=== PATIENT | female | born 1990 | race Caucasian/White ===

== ENCOUNTER 2017-02-12 09:19 | Emergency (ER) | payer SELFPAY ==
--- OUTSIDE RECORDS SUMMARY | 2017-02-12 09:54 | XMS REPORT | Continuity of Care Document ---
:1990 Author Organization [employer] [place] [address] Care Team Providers Name Role Phone Unavailable Primary Care Provider Unavailable Source Comments This disclosure is being made pursuant to the [employer] program and maynot contain all information available regarding this patient.[employer] Active Allergies and Adverse Reactions Not on File Current Medications Be aware that medications may not be up to date as of this document. Alwaysverify current medications with the patient. Not on file Active Problems Not on file Most Recent Encounters Date Type Specialty Providers Description 02/03/2017 Orders Only Provider, Not In System 01/29/2017 Orders Only Provider, Not In System 01/28/2017 Refill Family Medicine Rocio Tang NP 01/28/2017 Orders Only Provider, Not In System Social History Tobacco Use Types Packs/Day Years Used Date Never Assessed Plan of Care Health Maintenance Due Date Last Done Comments HPV Vaccine (9-26YO) (1 of 3 - Female 3 Dose Series) 2003 Chlamydia Screening 2008 Tetanus/Pertussis (1 - Tdap) 2011 Pap Smear 2013 Influenza Immunization (#1) 2016 Results from Last 3 Months Laboratory Miscellaneous (01/21/2017)Only the most recent of2 resultswithin the time period is included.Comprehensive metabolic panel (01/21/2017)CBC auto differential (01/21/2017) Component Value Range WBC Count 7.0 10^3/mL RBC 5.13 10^6/L Hemoglobin 15.0 g/dL Hematocrit 44.0 % Platelets 239 K/L Specimen BLOOD Narrative See scanned results 01-21-17 Lipid panel (01/21/2017) Component Value Range Cholesterol 200 mg/dL Triglycerides 154 mg/dL HDL 37 mg/dL LDL 132 mg/dL Narrative See scanned Results 01-21-17 Urine Drug Screen (01/21/2017) Specimen Urine
[2017-02-12] MEDS ORDERED: KETOROLAC TROMETHAMINE 30 MG/ML VIAL IM ONE (10:00)
[2017-02-12] MEDS ORDERED: KETOROLAC TROMETHAMINE 30 MG/ML VIAL ONE (10:05)
[2017-02-12 10:50] LABS: Hematocrit 43.2 % (37.0-47.0); Hemoglobin 14.7 gm/dL (12.5-16.0); Mean Cell Volume 86.2 fl (78-100); Mean Corpuscular Hemoglobin 29.3 pg (27-31); Neutrophil # 5.5 K/mm3 (1.3-6.0); Neutrophil % 65.8 % (42-75.0); Platelet Count 250 K/mm3 (150-450); Red Blood Count 5.01 M/mm3 (4.2-5.4); Red Cell Distribution Width 12.9 % (11.5-14.0); White Blood Count 8.4 K/mm3 (4.0-10.5)
[2017-02-12 11:06] LABS: ALT 42 U/L (19-67); AST 16 U/L (0-48); Albumin * 3.6 gm/dl (3.4-5.0); Alkaline Phosphatase * 66 U/L (50-170); Anion Gap 13.4 mmol/L (6.8-13.8); Bilirubin, Total 0.3 mg/dL (0.0-1.1); Blood Urea Nitrogen 9 mg/dL (3-23); Ca. Corrected For Albumin 9.1 mg/dL (8.4-10.2); Calcium * 9.1 mg/dL (7.9-10.9); Carbon Dioxide 24.8 mmol/L (24-32.6); Chloride 102 mmol/L (97-106); Glucose * 109 mg/dL (70-110); Lipase 132 U/L (73-393); Potassium 4.2 mmol/L (3.4-4.6); Sodium 136 mmol/L (132-142); Total Protein 7.6 gm/dL (6.2-8.2); Troponin I Less than 0.017 ng/ml (0.00-0.10)
--- NOTE | 2017-02-12 12:11 | ERNOTE ---
Medical Problem HPI - Narrative Date of Service: 02/12/17 - General Chief Complaint: General Assessment Time Seen by Provider: 02/12/17 09:44 Source: patient Exam Limitations: no limitations - Immun/Allergies/Home Medications Immunizations: IMMUNIZATION HX Immunizations Up to Date Yes History of Influenza Vaccine No Allergies/Adverse Reactions: Allergies amoxicillin Allergy (Verified 02/12/17 09:42) Swelling of Tongue Home Medications: HOME MEDICATIONS NK [No Home Medication] 02/12/17 [Last Taken Unknown] - History of Present History Narrative: Patient presents to the ED for rib pain. She relates 4 days of anterior rib pain low chest. She denies injury. pain has been constant for 4 days. Worse with moving, palpation and breathing. She was seen at outside hospital and she relates a full workup and was treated with antiinflammatories but did not fill the script. I was unable to get w/u/old records from that hospital. She has never had this before. No fever or cough. No injury. Right now m,oderate. Denies abdominal pain. No SOB at this time. Timing: constant Severity: moderate Modifying Factors - (Improves): Present: rest Modifying Factors - (Worsens): Present: movement, other - palpation Review of Systems - Review of Systems Constitutional: Absent: fever ENT: Present: no symptoms reported Respiratory: Present: See HPI Cardiology: Present: See HPI Gastrointestinal/Abdominal: Present: See HPI Neurological: Absent: weakness - Patient's Past Medical History Patient History - Medical: No pertinent hx Patient History - Cardiac/Respiratory: No pertinent hx Patient History - Cancer: No Hx of Cancer Patient History - Surgical Procedures: No surgical history Patient History - Other: None LMP (females 10-50): this week - Social History Psych History: No pertinent hx Do you dip or chew tobacco: Yes Drug Use: none - Immunizations Immunizations Up to Date: Yes History of Influenza Vaccine: No Physical Exam - Physical Exam General Appearance: Present: alert, no apparent distress, other - non-toxic, no distress, speaking in full sentences. Eye Exam: Normal inspection: bilateral Ears, Nose, Throat: Present: normal ENT inspection Neck: Present: normal inspection Respiratory: Present: no respiratory distress, normal breath sounds, no accessory muscle use, lungs clear, chest tenderness, other - There is completely reproducible tendenress anterior right low CC catilages. Palpation here completely reproduces her Sx. Cardiovascular/Chest: Present: regular rate, rhythm Gastrointestinal/Abdominal: Present: normal bowel sounds, nontender, soft. Absent: tenderness Back Exam: Present: normal range of motion Extremity Exam: Present: normal inspection, non-tender, other - No findings of DVT Skin Exam: Present: normal color, warm/dry. Absent: skin rash ED Progress - Results and Orders Patient's Lab Results:: I have reviewed the patient's lab results. - Vital Signs Patient's Vital Signs:: I have reviewed the patient's vital signs. Vital Signs: Vital Signs 02/12/17 02/12/17 02/12/17 09:27 10:47 11:53 Temperature 36.4 C L Pulse Rate 90 73 71 Respiratory 14 12 18 Rate Blood Pressure 140/96 124/95 127/88 O2 Sat by Pulse 100 97 98 Oximetry - EKG EKG: NSR EKG read: Interp. by me EKG Comments: NSR rate 85. Non-specific changes, no STEMI. - X-Ray X-Ray #1 X-Ray: chest Interpretation: Reviewed by me X-ray Comments: I reviewed images as well as official x-ray report. - Progress/Reassessment Chief Complaint: General Assessment Progress:: Improved Progress Note-Subjective: 02/12/17 12:08 Improved after toradol. I gave her copies of her labs and CXR report as her doctor is not in town. Clinically this is Chest wall tenderness. Nothing to suggest ACS. Nothign to suggest PE or aortic dissection with d-dimer in normal range CT not indicated. She feels improved and wishes to go home. She has Rx from other MD that I told her to fill. I discussed warning signs and reasons to return as well as the need for close f/u. Departure - Departure Clinical Impression: Chest wall pain Disposition: Home self-care Condition: Stable Instructions: Chest Wall Pain, [id number] Additional Instructions: Use medication provided to you from last visit. Rest. Fluids. Follow-up with primary doctor within 3 days for a re-check. Return for increased pain, trouble breathing or if your condition worsens or changes in any way. Referrals: Kristi Orr ARNP [Primary Care Provider] -
[2017-02-12 12:21] VITALS: BP 126/82
== END 2017-02-12 12:25 | disposition home or self-care (01) ==
LOC: ER 09:19
DX: R07.89 Other chest pain (principal)